=== PATIENT | female | born 1995 | race Hispanic/Latino ===

== ENCOUNTER 2018-01-16 14:11 | Day surgery (SDC) | payer OTHER ==
[2018-01-16 14:46] VITALS: BMI 35.1
[2018-01-16 14:54] VITALS: BP 124/65; TEMP 98.1
--- NOTE | 2018-01-16 16:03 | PDOC.LDHP ---
Labor and Delivery H&P Chief complaint: contractions HPI: at 38+6 by 8 week US who presents with off and on contractions for three days, but stronger contractoins this morning. Patient says they have been about 10 minutes apart. denies loss of fluid, denies bleeding, denies abnormal discharge. has been feeling baby move regularly. Current gestational age (weeks): 38 (+6) Due date: 01/24/18 Dating criteria: first trimester ultrasound Grav: 2 Para: 1 OB History Details: uncomplicated Current complications: none Abnormal US findings: No Past Medical History: none Current medications: pre- vitamins Previous surgical history: none Allergies/Adverse Reactions: Allergies Allergy/AdvReac Type Severity Reaction Status Date / Time No Known Allergies Allergy Verified 01/16/18 14:44 Social history: none - Physical Exam Vital signs reviewed and normal: yes General: NAD Heart: RRR Lungs: CTAB Abdomen: gravid FHT: category 1 (BL 145, moderate variability, frequent accels, no decelerations ) - Vaginal Exam cm dilated: 3 (Exam limited by very posterior cervix) Effacement: 75% Station: -2 - OB Labs Blood type: B RH: positive Antibody Screen: negative HIV: negative RPR: negative HEPSAg: negative 1 hour GCT: negative 3 hour GTT: unknown GBS: unknown (Patient thinks it is negative but we dont have report.) Urine drug screen: not done Rubella: immune - Assessment 1. Term at 38+6 by 8 week US who presents with contractions. FHTs are CAT 1 and contractions are far apart. no signs or symptoms of infection. Will let patient walk for time and recheck to evaluate whether patient is making fast progress or she is still in latent labor. GBS report is not available but patient remembers that it was negative. Will not treat because patient is term and unknown status if patient is in labor.
--- NOTE | 2018-01-16 17:53 | PDOC.EVN ---
Event Note - Event Note Event Note: Patient did well up walking. She is 2-3 cm/20%/-[address] guerrero check. Patient is in latent labor. Discussed labor precautions at length. Will DC home
== END 2018-01-16 18:13 | disposition home or self-care (01) ==
LOC: L&D/OP 14:11
PROVIDERS: ATTEND Family Medicine
DX: O47.1 False labor at or after 37 completed weeks of gestation (principal); Z79.899 Other long term (current) drug therapy; Z3A.38 38 weeks gestation of pregnancy

== ENCOUNTER 2018-01-20 17:49 | Inpatient (IN) | payer MEDICAID, OTHER, SELFPAY ==
[2018-01-20 18:31] VITALS: BMI 35.1
[2018-01-20] MEDS ORDERED: HYDROcodone/Acetaminophen 5/325 mg Tablet PO PRN (20:14)
[2018-01-20] MEDS ORDERED: Promethazine HCl 25 MG/ML VIAL IM PRN ×2 (20:14→23:19)
[2018-01-20] MEDS ORDERED: LR / Pitocin 40 units/1000 ml 1,000 ML IV PRN (20:14)
[2018-01-20] MEDS ORDERED: Ibuprofen 800 MG TAB PO PRN (20:14)
[2018-01-20] MEDS ORDERED: Ondansetron HCl/PF 4 MG/2 ML Vial IVP PRN ×2 (20:14→23:19)
[2018-01-20] MEDS ORDERED: Lidocaine 1% (PF) 30 ML VIAL SC PRN (20:14)
[2018-01-20] MEDS ORDERED: Misoprostol 200 MCG TAB PR PRN (20:14)
[2018-01-20] MEDS ORDERED: Carboprost 250 MCG/ML AMP IM PRN (20:14)
[2018-01-20] MEDS ORDERED: Diphenoxylate HCl/Atropine Tablet PO PRN (20:14)
[2018-01-20] MEDS ORDERED: Methylergonovine 0.2 MG/ML VIAL IM PRN (20:14)
--- NOTE | 2018-01-20 20:25 | PDOC.LDHP ---
Addendum entered and electronically signed by Roderick aPtel DO 01/20/18 22:56: Addend to add Physical Exam HEENT - normocephalic atraumatic CV - RRR, no murmur. Minimal LE edema Resp - CTA b/l Abd - gravid, non tender. Few palpable contractions - donald amniotic fluid. Clear, non bloody, without mec FHT - Cat 1 strip. Baseline 145, moderate variability, accel present. No decel. [place] inconsist q4-6min Original Note: Labor and Delivery H&P Chief complaint: loss of fluid HPI: 22 yo @ 39.3 by 1T US here with loss of fluid at 1300 today with out associated contractions. She denies bleeding, abdominal tenderness, fever/chills , or decreased movement. Pt has had consistent care. Uncomplicated to this point. Current gestational age (weeks): 39 (39.3) Due date: 01/24/18 Dating criteria: first trimester ultrasound Grav: 2 Para: 1 Current complications: none Abnormal US findings: No Current medications: pre-darin vitamins - Vaginal Exam cm dilated: 3 Effacement: 75% Station: 0 - OB Labs Blood type: B RH: positive Antibody Screen: negative HIV: negative RPR: negative HEPSAg: negative 1 hour GCT: negative GBS: negative Urine drug screen: negative Rubella: immune - Assessment L&D Assessment: term rupture in membranes - Plan Plan: admit to L&D -: Gross fluid on CVE. Admit to L&D for PROM. Monitor vitals for signs of chorioamnionitis. Q2 cervical checks. Pt is unsure if she wants epidural, will consult anesthesia. <Roderick Patel - Last Filed: 01/20/18 20:31> <Vianney Velásquez - Last Filed: 01/20/18 23:22> Allergies/Adverse Reactions: Allergies Allergy/AdvReac Type Severity Reaction Status Date / Time No Known Allergies Allergy Verified 01/16/18 14:44 Attending Addendum - Attending Addendum Date/Time: 01/20/18 9731 I personally evaluated the patient and discussed the management with Dr. Patel I agree with the History, Examination, Assessment and Plan documented above with any addition or exceptions noted below- 22 yo @ 39 3/7 weeks presented c.o LOF at 1 PM- clear. Mild cramping. Denies any VB (+) FM. POBHx, PMH, PSH, All, Meds, SH reviewed and agree [facility] resident's documentation. Afebrile VSS SVE- /0 per resident/nurse, Category 1 FHTs, [place]- irritability , occ ctx. A/P: IUP @ 39.3 weeks with PROM- Reassuring FHTs; plan to start pitocin as patient ruptured x 7 hours and no ctx. GBS negative. <Vianney Velásquez - Last Filed: 01/20/18 23:22>
[2018-01-20] MEDS: Lactated Ringer's 1,000 ML IV SCH (20:44)
[2018-01-20] MEDS ORDERED: LR 500 ML/Oxytocin 10 units 500 ML IV SCH (21:15)
[2018-01-20 21:21] LABS: Hemoglobin 10.2 g/dL (12.0-16.0); Mean Corpuscular HGB CONC 33.6 g/dL (32.0-36.0); Mean Corpuscular Hemoglobin 27.5 pg (27.0-31.0); Mean Corpuscular Volume 81.9 fl (81.0-99.0); Mean Platelet Volume 8.6 fL (7.4-10.4); Platelet Count 305 thou/uL (130-400); RBC Distribution Width 14.1 % (11.5-14.5); Red Blood Cell (RBC) Count 3.71 mill/uL (4.20-5.40); White Blood Cell (WBC) Count 10.9 thou/uL (4.8-10.8)
[2018-01-20] MEDS ORDERED: Bupivacaine/Epinephrine 0.25% 30 ML VIAL ONE (21:23)
[2018-01-20 21:58] LABS: Syphilis Antibody Nonreactive (Nonreactive); Syphilis Antibody Index 0.05 S/CO (<1.00 Non-Reactive)
[2018-01-20] MEDS ORDERED: DISCONTINUE ALL PREVIOUS NARCOTICS FS SCH (22:30)
[2018-01-20] MEDS ORDERED: Bupivacaine 0.5% 20 ML, Fentanyl 400 MCG in Sodium Chloride 0.9% 72 ML EPIDURAL SCH (22:30)
[2018-01-20] MEDS ORDERED: Acetaminophen 325 MG TAB PO PRN (23:19)
[2018-01-20] MEDS ORDERED: Naloxone HCl 0.4 mg/ml Vial IVP PRN ×2 (23:19)
[2018-01-20] MEDS ORDERED: diphenhydrAMINE 50 MG/ML VIAL IVP PRN (23:19)
[2018-01-20] MEDS ORDERED: ePHEDrine/0.9% NaCl/PF SYRINGE 50 mg/10 ml SLOW IVP PRN (23:19)
[2018-01-20] MEDS ORDERED: Lactated Ringer's 500 ML IV PRN (23:19)
[2018-01-20] MEDS ORDERED: Eucerin (Mineral Oil/Petrolatum,White) 30 gm Jar TOP PRN (23:19)
[2018-01-20] MEDS ORDERED: Fentanyl 4mcg/Marcaine 0.1% Cassette 100 ML EPIDURAL SCH (23:30)
[2018-01-20] MEDS ORDERED: Communication Order-Pharmacy FS SCH (23:30)
--- NOTE | 2018-01-20 23:53 | PDOC.LDPN ---
Labor & Delivery Progress Note - Subjective Subjective: comfortable - Objective Vital signs reviewed and normal: yes General: NAD, resting Uterine fundus: non tender Dilation: 4 Effacement: 90% Station: 0 FHT: category 2, acceleration absent, variable decelerations, variability present (minimal) [place] contractions every: 3-4 Resuscitative measures: maternal IV fluids (LR), maternal position change - Assessment (1) Premature rupture of membranes Code(s): O42.90 - ROSMERY ROM, 7TH0 BETW RUPT & ONST LABR, UNSP WEEKS OF GEST Current Visit: Yes Status: Acute Qualifiers: PROM onset of labor timing: onset of labor within 24 hours of rupture PROM gestational age: full term Qualified Code(s): O42.02 - Full-term premature rupture of membranes, onset of labor within 24 hours of rupture (2) Term Code(s): Z34.80 - ENCOUNTER FOR SUPRVSN OF NORMAL , UNSP TRIMESTER Current Visit: Yes Status: Acute Plan: labor augmentation, resuscitative measures -: Since getting epidural variability has decreased, upon repositioning variability improved. It has been almost 12 hours since eating, will add a D5 bolus. Pit is currently at 2 because of decreased variability, will attempt to titrate up as strip improves. Reevaluate in 1 hour.
[2018-01-20 23:54] LABS: HBSAg Index 0.13 S/CO (0-0.99); Hep B Surf Ag Non-Reactive S/CO (NonReactive)
[2018-01-21] MEDS: Lactated Ringer's 1,000 ML IV SCH (00:06)
--- NOTE | 2018-01-21 01:38 | PDOC.OPDEL ---
OB Operative/Delivery Note Delivery Dr/Surgeon: Annette Patel Pope Pre-Delivery Diagnosis: ruptured membrane Procedure/Post Delivery Dx: spontaneous vaginal delivery Weeks gestation: 39 (39.3) Anesthesia: epidural - Findings A Sex: female - 1 min: 8 - 5 min: 9 - Additional Findings/Plan Placenta delivered: spontaneous Repaired Obstetrical Laceration: none (1st degree perineal laceration, hemostatic without repair) Estimated blood loss: 150 mL Post delivery plan: routine recovery
[2018-01-21] MEDS ORDERED: Benzocaine/Menthol 20-0.5% 60 ML CAN TOP PRN (04:36)
[2018-01-21] MEDS ORDERED: Milk Of Magnesia 30 ML UDCUP PO PRN (04:36)
[2018-01-21] MEDS ORDERED: diphenhydrAMINE 25 MG CAP PO PRN (04:36)
[2018-01-21] MEDS ORDERED: Bisacodyl 10 MG SUPP PR PRN (04:36)
[2018-01-21] MEDS ORDERED: Adacel (T-DAP) 0.5 ML VIAL IM ONE (04:36)
[2018-01-21] MEDS ORDERED: Lanolin Ointment 7 GM TUBE TOP PRN (04:36)
[2018-01-21] MEDS ORDERED: LR / Pitocin 40 units/1000 ml 1,000 ML IV SCH (04:36)
[2018-01-21] MEDS: Ferrous Sulfate 325 MG TAB PO SCH ×2 (08:58→18:30)
[2018-01-21] MEDS: Ibuprofen 800 MG TAB PO SCH ×3 (08:58→22:02)
[2018-01-21] MEDS: Docusate Calcium (SURFAK) 240 MG CAP PO SCH ×2 (08:59→22:02)
[2018-01-21] MEDS: Prenatal Vitamin 1 TAB PO SCH (09:01)
[2018-01-22 05:50] LABS: Hemoglobin 9.9 g/dL (12.0-16.0); Mean Corpuscular HGB CONC 32.8 g/dL (32.0-36.0); Mean Corpuscular Hemoglobin 27.3 pg (27.0-31.0); Mean Corpuscular Volume 83.4 fl (81.0-99.0); Mean Platelet Volume 8.4 fL (7.4-10.4); Platelet Count 259 thou/uL (130-400); RBC Distribution Width 14.3 % (11.5-14.5); Red Blood Cell (RBC) Count 3.62 mill/uL (4.20-5.40); White Blood Cell (WBC) Count 10.1 thou/uL (4.8-10.8)
[2018-01-22] MEDS: Ibuprofen 800 MG TAB PO SCH (06:11)
--- NOTE | 2018-01-22 06:32 | PDOC.PP ---
Post Progress Note Post Day #: 1 Subjective: Patient is resting comfortably this morning. Reports she is eating well, getting out of bed and walking around, and has had minimal pain. Lochia less than a period. No complaints at this time. PO intake tolerated: yes Flatus: yes Ambulation: yes Vital Signs (12 hours) Temp Pulse Resp BP 01/22/18 05:00 98.5 F 82 17 120/69 01/22/18 04:00 98.0 F 71 20 01/22/18 00:00 98.0 F 71 20 01/21/18 21:00 98.5 F 84 18 118/68 01/21/18 20:00 98.0 F 71 20 Weight Weight 87.09 kg - Physical Examination General: NAD Cardiovascular: no m/r/g, RRR Respiratory: clear to auscultation bilaterally, non-labored breathing Abdominal: + bowel sounds, lochia, no distention, appropriately TTP Fundus firm & at: -2 Extremities: negative homans (B) Neurological: no gross focal deficits Psychiatric: A&Ox3, normal affect Result Diagrams: 01/22/18 04:53 Additional Labs: Post Labs Hep Bs Antigen Non-Reactive S/CO (NonReactive) 01/20/18 20:50 (1) Term delivered Code(s): O80 - ENCOUNTER FOR FULL-TERM UNCOMPLICATED DELIVERY Status: Acute Comment: 22yo presented at 39.3w in active labor, delievered TAGA F at 0117 on 01/21/18. PP day #1. Patient doing well, tolerating PO and ambulating well. Pain controlled with Ibuprofen. Likely d/c home later today. (2) Anemia in Code(s): O99.019 - ANEMIA COMPLICATING , UNSPECIFIED TRIMESTER Status : Acute Comment: Initial Hg 10.1 down to 9.9 (appropriate drop). Continue Iron supplements. <Marleni Kwok - Last Filed: 01/22/18 08:05> Weight Weight 87.09 kg Result Diagrams: 01/22/18 04:53 Additional Labs: Post Labs Hep Bs Antigen Non-Reactive S/CO (NonReactive) 01/20/18 20:50 <Nataly Long - Last Filed: 01/23/18 16:11> Attending Addendum - Attending Addendum Date/Time: 01/23/18 1610 I personally evaluated the patient and discussed the management with Dr. Kwok on 01/22/18. I agree with the History, Examination, Assessment and Plan documented above with any addition or exceptions noted below. Patient doing well. DIscharge home today. <Nataly Long - Last Filed: 01/23/18 16:11>
[2018-01-22 08:00] VITALS: BP 119/78; TEMP 98.1
[2018-01-22] MEDS: Ferrous Sulfate 325 MG TAB PO SCH (08:59)
[2018-01-22] MEDS: Prenatal Vitamin 1 TAB PO SCH (08:59)
[2018-01-22] MEDS: Docusate Calcium (SURFAK) 240 MG CAP PO SCH (08:59)
== END 2018-01-22 14:10 | disposition home or self-care (01) | DRG 775 ==
LOC: L&D/OP 17:49 → L&D 19:52 → 3SW 01-21 04:37
PROVIDERS: ADMIT Family Medicine; ATTEND Family Medicine
PROC: 3E033VJ Introduction of Other Hormone into Peripheral Vein, Percutaneous Approach (ICD-10-PCS; 2018-01-20)
PROC: 10E0XZZ Delivery of Products of Conception, External Approach (ICD-10-PCS; principal; 2018-01-21)
DX: O42.02 Full-term premature rupture of membranes, onset of labor within 24 hours of rupture (principal); D64.9 Anemia, unspecified; O70.0 First degree perineal laceration during delivery; Z3A.39 39 weeks gestation of pregnancy; Z37.0 Single live birth; O90.81 Anemia of the puerperium
CPT/HCPCS: 36415; 51702; 85027; 86780; 87340; 99285; J2001; J3010; J3490; J7050; J7120

== ENCOUNTER 2024-08-18 07:26 | Emergency (ER) | payer SELFPAY ==
[2024-08-18] MEDS ORDERED: Morphine 4 MG/ML VIAL ONE (07:57)
[2024-08-18] MEDS ORDERED: Ondansetron PF 4 MG/2 ML Vial ONE (07:57)
[2024-08-18 08:14] LABS: Bacteria/HPF None Seen HPF (None Seen); Bilirubin Negative (Negative); Blood, Urine Negative (Negative); CAUTI Indications for Culture Pelvic or flank pain; Clarity Turbid (Clear); Glucose, Urine (Dipstick) Normal (Negative); Hematocrit 42.7 % (36.0-47.0); Hemoglobin 13.9 g/dL (12.0-16.0); Ketone, Urine Negative (Negative); Leukocyte Negative Leu/uL (Negative); Mean Corpuscular HGB CONC 32.6 g/dL (32.0-36.0); Mean Corpuscular Hemoglobin 27.5 pg (27.0-31.0); Mean Corpuscular Volume 84.6 fL (78.0-98.0); Mean Platelet Volume 9.9 fL (7.4-10.4); Nitrite Negative (Negative); Platelet Count 311 10x3/uL (130-400); Protein, Urine (Dipstick) 70 mg/dL (Neg-Trace); RBC Distribution Width 14.7 % (11.5-14.5); RBC/HPF 0-3 HPF (0-3); Red Blood Cell (RBC) Count 5.05 mill/uL (4.20-5.40); Specific Gravity, Urine 1.044 (1.002-1.036); Urobilinogen Normal mg/dL (Less than 2)
[2024-08-18 08:17] LABS: BHCG - Serum Negative (NEGATIVE); Pregs Control Background? CLEAR/WHITE (CLR/WHITE); Pregs Control Bar Appear? YES (CONTROL BAR); Urine Culture Reflex No No
[2024-08-18 08:25] LABS: ALT (SGPT) 16 U/L (8-55); AST (SGOT) 16 U/L (5-34); Albumin 3.7 g/dL (3.5-5.0); Alkaline Phosphatase 80 U/L (40-110); Anion Gap 12 mmol/L (10-20); BUN (Urea Nitrogen) 10 mg/dL (7.0-18.7); Bilirubin, Total 0.4 mg/dL (0.2-1.2); Calc. Creatinine Clearance 0 mL/min (70-130); Calcium 9.8 mg/dL (7.8-10.44); Carbon Dioxide 21 mmol/L (22-29); Chloride 105 mmol/L (98-107); Estimated GFR 99; Globulin 3.8 g/dL (2.4-3.5); Glucose 105 mg/dL (70-105); Lipase 18 U/L (8-78); Potassium 3.5 mmol/L (3.5-5.1); Protein, Total 7.5 g/dL (6.0-8.3); Sodium 134 mmol/L (136-145)
[2024-08-18 09:01] LABS: Band 28 % (5-11); Lymphocytes 12 % (21-51); Monocytes 4 % (0-10); Neutrophil 55 % (42-75); Platelet Adequacy Comment Platelets Normal; RBC Morphology Within Normal Limits
[2024-08-18] MEDS ORDERED: Iopamidol-370 76% 500 ML MDV (1 ML CHARGE) ONE (09:05)
== END 2024-08-18 09:22 | disposition home or self-care (01) ==
LOC: ERS 07:26
DX: K52.9 Noninfective gastroenteritis and colitis, unspecified (principal)
CPT/HCPCS: 74177; 80053; 81001; 83690; 84703; 85025; 96374; 96375; J2272; J2405; Q9967